=== PATIENT | male | born 1985 | race African-American/Black ===

== ENCOUNTER 2022-10-23 03:15 | Emergency (ER) | payer SELFPAY ==
[~2022-10-23] VITALS: Ht 182.9 cm; Wt 82.5 kg
[2022-10-23 03:43] VITALS: BP 139/74
== END 2022-10-23 07:56 | disposition left against medical advice (07) ==
LOC: ER 03:15
DX: Z53.21 Procedure and treatment not carried out due to patient leaving prior to being seen by health care provider (principal)

== ENCOUNTER 2023-08-14 19:08 | Emergency (ER) | payer SELFPAY ==
[~2023-08-14] VITALS: Ht 182.9 cm; Wt 87.0 kg
[2023-08-14 19:18] VITALS: BP 123/82; PULSE 115; RESP 20; TEMP 97.8; O2SAT 97
[2023-08-14] MEDS ORDERED: ALBUTEROL (0.083%) 2.5MG/3ML NEB HHN STA (19:20)
== END 2023-08-14 21:16 | disposition left against medical advice (07) ==
LOC: ER 19:08
DX: R06.00 Dyspnea, unspecified (principal); F41.9 Anxiety disorder, unspecified; J45.909 Unspecified asthma, uncomplicated; Z88.2 Allergy status to sulfonamides
CPT/HCPCS: 99283

== ENCOUNTER 2024-06-12 19:01 | Emergency (ER) | payer SELFPAY ==
[~2024-06-12] VITALS: Ht 177.8 cm; Wt 83.0 kg
[2024-06-12 19:07] VITALS: BP 139/83; PULSE 80; RESP 16; TEMP 98.2; O2SAT 98
[2024-06-12 20:01] LABS: BASOPHILS % 0.8 % (0.0-2.0); HEMATOCRIT. 39.2 % (42.0-52.0); HEMOGLOBIN. 13.1 g/dL (14.0-18.0); LYMPHOCYTES % 64.5 % (20.0-50.0); MEAN CORPUSCULAR HEMOGLOBIN 31.2 pg (28.0-32.0); MEAN CORPUSCULAR HGB CONC 33.5 g/dL (31.0-37.0); MEAN CORPUSCULAR VOLUME 93.4 fL (80.0-94.0); MEAN PLATELET VOLUME 8.2 fl (7.4-10.4); MONOCYTES % 7.1 % (2.0-8.0); NEUTROPHILS % 26.6 % (40.0-76.0); PLATELET 221 x1000/uL (130-400); RED BLOOD CELL COUNT 4.19 mill/uL (4.7-6.1); RED CELL DISTRIBUTION WIDTH 14.3 % (11.6-14.6)
[2024-06-12 20:07] LABS: CHLORIDE 106 mEq/L (98-107); POTASSIUM 4.3 mEq/L (3.5-5.1); SODIUM 140 mEq/L (136-145)
[2024-06-12 20:08] LABS: CALCIUM 9.8 mg/dL (8.7-10.4); CARBON DIOXIDE 31 mEq/L (21-32)
[2024-06-12 20:13] LABS: CREATININE 1.4 mg/dL (0.6-1.3); GLUCOSE 69 mg/dL (70-105); UREA NITROGEN BLOOD 15 mg/dL (9-23)
[2024-06-12 20:28] LABS: TROPONIN I HIGH SENSITIVITY < 4 ng/L (3.0-53)
== END 2024-06-12 23:08 | disposition left against medical advice (07) ==
LOC: ER 19:01
DX: R07.89 Other chest pain (principal); J45.909 Unspecified asthma, uncomplicated; F41.9 Anxiety disorder, unspecified; Z88.2 Allergy status to sulfonamides
CPT/HCPCS: 36415; 71045; 80048; 84484; 85025; 93005; 99285

== ENCOUNTER 2024-07-29 17:58 | Emergency (ER) | payer SELFPAY ==
[~2024-07-29] VITALS: Ht 182.9 cm; Wt 81.0 kg
[2024-07-29 18:00] VITALS: O2SAT 96
[2024-07-29 18:01] VITALS: BP 151/94; PULSE 92; RESP 18; TEMP 97.9; O2SAT 97
[2024-07-29 18:32] LABS: BASOPHILS % 0.5 % (0.0-2.0); EOSINOPHILS % 0.7 % (0.0-5.0); HEMATOCRIT. 37.3 % (42.0-52.0); HEMOGLOBIN. 12.3 g/dL (14.0-18.0); LYMPHOCYTES % 61.1 % (20.0-50.0); MEAN CORPUSCULAR HEMOGLOBIN 29.4 pg (28.0-32.0); MEAN CORPUSCULAR VOLUME 89.1 fL (80.0-94.0); MEAN PLATELET VOLUME 7.4 fl (7.4-10.4); NEUTROPHILS % 29.7 % (40.0-76.0); PLATELET 218 x1000/uL (130-400); RED BLOOD CELL COUNT 4.19 mill/uL (4.7-6.1); WHITE BLOOD COUNT 5.9 x1000/uL (4.5-11.0)
[2024-07-29 18:39] LABS: CHLORIDE 105 mEq/L (98-107); POTASSIUM 3.7 mEq/L (3.5-5.1); SODIUM 140 mEq/L (136-145)
[2024-07-29 18:40] LABS: CARBON DIOXIDE 30 mEq/L (21-32)
[2024-07-29 18:45] LABS: CREATININE 1.3 mg/dL (0.6-1.3); GLUCOSE 97 mg/dL (70-105); UREA NITROGEN BLOOD 9 mg/dL (9-23)
[2024-07-29 18:49] LABS: TROPONIN I HIGH SENSITIVITY < 4 ng/L (3.0-53)
== END 2024-07-29 20:40 | disposition left against medical advice (07) ==
LOC: ER 17:58
DX: R07.9 Chest pain, unspecified (principal); Z53.21 Procedure and treatment not carried out due to patient leaving prior to being seen by health care provider
CPT/HCPCS: 36415; 71045; 80048; 84484; 85025; 93005

== ENCOUNTER 2024-09-27 15:27 | Emergency (ER) | payer SELFPAY ==
[~2024-09-27] VITALS: Ht 182.9 cm; Wt 84.0 kg
[2024-09-27 15:36] VITALS: O2SAT 100
[2024-09-27 15:46] VITALS: BP 117/81; PULSE 88; RESP 18; TEMP 98.8; O2SAT 98
== END 2024-09-27 19:30 | disposition left against medical advice (07) ==
LOC: ER 15:27
DX: R07.9 Chest pain, unspecified (principal); Z53.21 Procedure and treatment not carried out due to patient leaving prior to being seen by health care provider
CPT/HCPCS: 71045; 93005

== ENCOUNTER 2024-11-14 13:33 | Emergency (ER) | payer SELFPAY ==
[~2024-11-14] VITALS: Ht 182.9 cm; Wt 86.0 kg
[2024-11-14 13:35] VITALS: O2SAT 100
[2024-11-14 15:40] LABS: CHLORIDE 103 mEq/L (98-107); POTASSIUM 3.4 mEq/L (3.5-5.1); SODIUM 140 mEq/L (136-145)
[2024-11-14 15:41] LABS: BASOPHILS % 0.4 % (0.0-2.0); CALCIUM 9.9 mg/dL (8.7-10.4); CARBON DIOXIDE 29 mEq/L (21-32); EOSINOPHILS % 0.2 % (0.0-5.0); HEMOGLOBIN. 12.6 g/dL (14.0-18.0); LYMPHOCYTES % 46.9 % (20.0-50.0); MEAN CORPUSCULAR HEMOGLOBIN 29.5 pg (28.0-32.0); MEAN CORPUSCULAR HGB CONC 32.2 g/dL (31.0-37.0); MEAN CORPUSCULAR VOLUME 91.4 fL (80.0-94.0); MEAN PLATELET VOLUME 7.9 fl (7.4-10.4); MONOCYTES % 6.6 % (2.0-8.0); NEUTROPHILS % 45.9 % (40.0-76.0); PLATELET 238 x1000/uL (130-400); RED BLOOD CELL COUNT 4.27 mill/uL (4.7-6.1); RED CELL DISTRIBUTION WIDTH 15.2 % (11.6-14.6); WHITE BLOOD COUNT 5.7 x1000/uL (4.5-11.0)
[2024-11-14 15:46] LABS: CREATININE 1.1 mg/dL (0.6-1.3); GLUCOSE 103 mg/dL (70-105); UREA NITROGEN BLOOD 8 mg/dL (9-23)
[2024-11-14 15:48] LABS: TROPONIN I HIGH SENSITIVITY < 4 ng/L (3.0-53)
[2024-11-14 16:27] VITALS: BP 149/94; PULSE 63; RESP 18; TEMP 36.6; O2SAT 100
== END 2024-11-14 16:28 | disposition home or self-care (01) ==
LOC: ER 13:33
DX: R07.89 Other chest pain (principal); F19.10 Other psychoactive substance abuse, uncomplicated; J45.909 Unspecified asthma, uncomplicated; F41.9 Anxiety disorder, unspecified; Z88.2 Allergy status to sulfonamides
CPT/HCPCS: 36415; 71045; 80048; 84484; 85025; 93005; 99285

== ENCOUNTER 2025-03-06 07:59 | Emergency (ER) | payer SELFPAY ==
[~2025-03-06] VITALS: Ht 182.9 cm; Wt 89.0 kg
[2025-03-06 08:04] VITALS: BP 115/78; PULSE 72; RESP 18; TEMP 36.9; O2SAT 95
== END 2025-03-06 09:52 | disposition left against medical advice (07) ==
LOC: ER 07:59
DX: J70.0 Acute pulmonary manifestations due to radiation (principal); F31.9 Bipolar disorder, unspecified; J45.909 Unspecified asthma, uncomplicated; Z88.2 Allergy status to sulfonamides; Z91.148 Patient's other noncompliance with medication regimen for other reason; Y84.2 Radiological procedure and radiotherapy as the cause of abnormal reaction of the patient, or of later complication, without mention of misadventure at the time of the procedure
CPT/HCPCS: 99283